=== PATIENT | female | born 1955 | race Caucasian/White ===

== ENCOUNTER 2023-04-06 16:07 | Emergency (ER) | payer MEDICARE ==
[~2023-04-06] VITALS: Ht 172.7 cm; Wt 74.0 kg
[2023-04-06 17:39] VITALS: BP 134/72
[2023-04-06 18:00] VITALS: BP 131/84
[2023-04-06 19:00] VITALS: BP 146/67
[2023-04-06] MEDS ORDERED: TRAMADOL HYDROC50 M1 PO (19:58)
[2023-04-06 20:00] VITALS: BP 151/69
[2023-04-06 20:13] VITALS: BP 151/69
== END 2023-04-06 20:46 | disposition home or self-care (01) ==
LOC: ED 16:07
PROC: 2W3FX1Z Immobilization of Left Hand using Splint (ICD-10-PCS; principal; 2023-04-06)
DX: S62.627A Displaced fracture of middle phalanx of left little finger, initial encounter for closed fracture (principal); W22.09XA Striking against other stationary object, initial encounter; Y93.E2 Activity, laundry; Y92.009 Unspecified place in unspecified non-institutional (private) residence as the place of occurrence of the external cause